=== PATIENT | female | born 1950 | race Asian ===

== ENCOUNTER → 2019-11-06 | Outpatient (CLI) | payer OTHER ==
[2019-11-07 03:18] LABS: RUBEOLA (MEASLES) IGG >300.0 AU/mL (Immune >16.4)
[2019-11-08 15:34] LABS: QUANTIFERON+,Mitogen Value >10.00 IU/mL; QUANTIFERON+,TB1 Antigen Value 0.28 IU/mL; QUANTIFERON, TB GOLD PLUS Negative (Negative)
== END | disposition home or self-care (01) ==
LOC: LABPV 11:35
PROVIDERS: ATTEND Internal Medicine
DX: Z02.89 Encounter for other administrative examinations (principal)
CPT/HCPCS: 86480; 86592; 86706; 86735; 86762; 86765; 86787; 87491; 87591